=== PATIENT | male | born 1995 | race Two or more races ===

== ENCOUNTER 2017-10-12 13:59 | Emergency (ER) | payer OTHER ==
[~2017-10-12 13:59] MED LIST: AUG875 PO; CITA-137 PO; CITA-139 PO; LEVO5TAB28 PO; LOR5/325 PO; MECL25TA9 PO; ONDA4TAB PO; [UNRECOGNIZED DRUG - CODE] PO; antihistamine
[2017-10-12 14:08] VITALS: BP 142/86
--- NOTE | 2017-10-12 14:32 | ER Report ---
History and Physical Time Seen By MD: 14:27 Hx. of Stated Complaint: LSD EXPOSURE HPI/ROS CHIEF COMPLAINT: Body fluid exposure HISTORY OF PRESENT ILLNESS: Patient is a 22-year-old male who works for the [employer]. He was exposed to sweat and spit from a patient who is currently being seen in the emergency department for LSD use. The affected exposure area is his right forearm. He does not believe any bodily fluid entered into his eyes or mouth. Skin is intact over the exposed area. Allergies: Coded Allergies: No Known Drug Allergies (Unverified , 10/12/17) Home Meds Active Scripts Meclizine Hcl (MECLIZINE HCL) 25 Mg Tablet, 25 MG PO BID for dizziness, #20 TAB Prov:YODIT FABIAN MD 08/07/17 Reported Medications Levocetirizine (XYZAL) 5 Mg Tab, 10 MG PO, TAB 08/07/17 Citalopram Hydrobromide (CITALOPRAM HBR) 20 Mg Tablet, 20 MG PO 08/07/17 [antihistamine] No Conflict Check 08/07/17 Past Medical/Surgical History Anxiety Hx Smoking: No Hx Substance Use Disorder: No Constitutional Vital Sign - Last 24 Hours 10/12/17 14:08 Temp 97.3 Pulse 68 Resp 14 B/P (MAP) 142/86 Pulse Ox 94 O2 Delivery Room Air Physical Exam General appearance: Alert no distress. Respiratory: Chest is non tender, lungs are clear to auscultation. Cardiac: Regular rate and rhythm Skin: intact no rashes. Medical Decision Making Data Points Laboratory Hematology Test 10/12/17 14:22 Urine Opiates Screen Negative Urine Barbiturates Screen Negative Ur Tricyclic Antidepressants Screen Negative Urine Phencyclidine Screen Negative Urine Amphetamines Screen Negative Urine Benzodiazepines Screen Negative Urine Cocaine Screen Negative Urine Cannabinoids Screen Negative Chemistry Test 10/12/17 14:22 Urine Opiates Screen Negative Urine Barbiturates Screen Negative Ur Tricyclic Antidepressants Screen Negative Urine Phencyclidine Screen Negative Urine Amphetamines Screen Negative Urine Benzodiazepines Screen Negative Urine Cocaine Screen Negative Urine Cannabinoids Screen Negative Toxicology Test 10/12/17 14:22 Urine Opiates Screen Negative Urine Barbiturates Screen Negative Ur Tricyclic Antidepressants Screen Negative Urine Phencyclidine Screen Negative Urine Amphetamines Screen Negative Urine Benzodiazepines Screen Negative Urine Cocaine Screen Negative Urine Cannabinoids Screen Negative ED Course/Re-evaluation ED Course Plan at this time will be baseline urine drug screen. Feel that the patient has nearly negligable risk for exposure to LSD given in fact intact skin and body fluid contact was mostly limited to sweat. Decision to Disposition Date: Oct 12, 2017 Decision to Disposition Time: 14:29 Depart Departure Latest Vital Signs Vital Signs Date Time Temp Pulse Resp B/P (MAP) Pulse Ox O2 Delivery O2 Flow Rate FiO2 10/12/17 14:08 97.3 68 14 142/86 94 Room Air Impression: Primary Impression: Patient exposure to body fluids Condition: Condition Unchanged Disposition: HOME OR SELF-CARE Patient Instructions: Body Substance Exposure (ED) NADINE MCKEON MD Oct 12, 2017 14:32
== END 2017-10-12 14:42 | disposition home or self-care (01) ==
LOC: ER 14:00
DX: Z77.21 Contact with and (suspected) exposure to potentially hazardous body fluids (principal)
CPT/HCPCS: 80305; 99282

== ENCOUNTER 2017-12-05 18:47 | Emergency (ER) | payer OTHER ==
[2017-12-05] MEDS ORDERED: MULT1TAB64 PO (18:52)
--- NOTE | 2017-12-05 19:27 | ER Report ---
History and Physical Time Seen By MD: 19:19 Hx. of Stated Complaint: PT REPORTS THAT HE THINKS HE BROKE HIS RIGHT HAND KICKBOXING ABOUT 30 MINUTES AGO. HPI/ROS Patient is a 22 y.o male presenting with a right hand injury after punching an opponent at a kick boxing class. The event occurred approx. a half a hour ago. He is currently icing the hand and feels comfortable without movement. Allergies: Coded Allergies: No Known Drug Allergies (Unverified , 12/05/17) Home Meds Active Scripts Hydrocodone Bit/Acetaminophen (NORCO 5-325 TABLET) 1 Each Tablet, 1 EACH PO Q4- 6H Y for PAIN, #12 TAB Prov:LUDIN TUCKER 12/05/17 Meclizine Hcl (MECLIZINE HCL) 25 Mg Tablet, 25 MG PO BID for dizziness, #20 TAB Prov:YODIT FABIAN MD 08/07/17 Reported Medications Multivitamin (MULTI VITAMIN DAILY) 1 Each Tablet, 1 EACH PO DAILY 12/05/17 Levocetirizine (XYZAL) 5 Mg Tab, 10 MG PO, TAB 08/07/17 Citalopram Hydrobromide (CITALOPRAM HBR) 20 Mg Tablet, 20 MG PO 08/07/17 Discontinued Reported Medications [antihistamine] No Conflict Check 08/07/17 Past Medical/Surgical History No prior injury or surgery to the right hand. Hx Smoking: No Hx Substance Use Disorder: No Constitutional Vital Sign - Last 24 Hours 12/05/17 18:52 Temp 98.6 Pulse 94 Resp 14 B/P (MAP) 136/74 Pulse Ox 91 O2 Delivery Room Air Physical Exam General: Calm and under no acute distress. Resp: Clear and equal bilaterally. CV: RR, no clicks, murmurs, gallops, or rubs. MSK: Right hand with edema erythema of 5th MC. Full ROM with decreased grasping strength 3/5. Crepitus noted with palpation of 5th MC. Neuro: A&O x3, sensation intact. Psych Appropriate mood and affect. Medical Decision Making EKG/Imaging Imaging Technique: HAND COMPLETE RIGHT HISTORY: Right hand injury Comparison studies: None FINDINGS: Present is an acute, comminuted, intra-articular fracture involving the base of the right fifth metacarpal. The fracture extends into the carpometacarpal joint. There is fracture fragment diastases laterally. Remaining alignment of the right hand is maintained. Soft tissue swelling surrounds the fracture site. IMPRESSION: 1. Acute, intra-articular fracture involving the base of the right fifth metacarpal as described above. Report Dictated By: Simba Tamez DO at 12/05/2017 7:34 PM Report E-Signed By: Simba Tamez DO at 12/05/2017 7:37 PM ED Course/Re-evaluation ED Course Patient was admitted to ER with right hand injury. Ice was provided for pain. He was examined and a hand XR was taken, showing a 5th MC fx. He was splinted and given a script for Corwith. He was then discharged and will f/u with orthopedics. Procedure: Splint placement. A ulnar gutter splint was applied. After application of the splint I returned and re-examined the patient. The splint was adequately immobilizing the joint and distal to the splint the patient's circulation and sensation was intact. Decision to Disposition Date: Dec 05, 2017 Decision to Disposition Time: 20:14 Depart Departure Latest Vital Signs Vital Signs Date Time Temp Pulse Resp B/P (MAP) Pulse Ox O2 Delivery O2 Flow Rate FiO2 12/05/17 18:52 98.6 94 14 136/74 91 Room Air Impression: Primary Impression: Fracture of fifth metacarpal bone of right hand Condition: Improved Disposition: HOME OR SELF-CARE Referrals: KOREY HAM MD New Scripts Hydrocodone Bit/Acetaminophen (NORCO 5-325 TABLET) 1 Each Tablet 1 EACH PO Q4-6H Y for PAIN, #12 TAB Prov: LUDIN TUCKER 12/05/17 Patient Instructions: Hand Fracture (ED) Additional Instructions: You have a 5th metacarpal base fracture. You are placed in a ulnar gutter splint and will wear it continuously. If the wrapping feels too tight, you can loosen it but do not remove completely. A script for Corwith has been sent to your pharmacy for severe pain. Ibuprofen 800 mg every 6-8 hours as needed for pain. Ice application 20 minutes 3-4x daily. Elevations for 30 minutes 2x/daily Follow-up with orthopedics. Problem Qualifiers Primary Impression: Fracture of fifth metacarpal bone of right hand Encounter type: initial encounter Fracture type: closed Metacarpal location : base Fracture alignment: nondisplaced Qualified Codes: S62.346A - Nondisplaced fracture of base of fifth metacarpal bone, right hand, initial encounter for closed fracture LUDIN TUCKER [employer] Dec 05, 2017 19:27
--- NOTE | 2017-12-05 19:40 | RADIOLOGY IMAGING REPORT ---
FACILITY: [facility] PATIENT NAME: Colin Whyte : 1995 MR: [id number] V: [id number] EXAM DATE: ORDERING PHYSICIAN: LUDIN TUCKER TECHNOLOGIST: Location: [facility] Patient: Colin Whyte : 1995 Visit/Account:[id number] Date of Sevice: 12/05/2017 Technique: HAND COMPLETE RIGHT HISTORY: Right hand injury Comparison studies: None FINDINGS: Present is an acute, comminuted, intra-articular fracture involving the base of the right f ifth metacarpal. The fracture extends into the carpometacarpal joint. There is fracture fragment ceballos tases laterally. Remaining alignment of the right hand is maintained. Soft tissue swelling surrounds the fracture site. IMPRESSION: 1. Acute, intra-articular fracture involving the base of the right fifth metacarpal as described abo ve. Report Dictated By: Simba Tamez DO at 12/05/2017 7:34 PM Report E-Signed By: Simba Tamez DO at 12/05/2017 7:37 PM WSN:[id number]
[2017-12-05] MEDS ORDERED: HYDR-4309 PO (20:22)
[2017-12-05] MEDS ORDERED: ACET/HYDROC 5/325MG TH ER ONLY 2 TAB/BOTTLE PO ONE (20:25)
[2017-12-05 20:30] VITALS: BP 128/83
== END 2017-12-05 20:33 | disposition home or self-care (01) ==
LOC: ER 19:30
DX: S62.346A Nondisplaced fracture of base of fifth metacarpal bone, right hand, initial encounter for closed fracture (principal); W22.8XXA Striking against or struck by other objects, initial encounter; Y93.71 Activity, boxing
CPT/HCPCS: 99283

== ENCOUNTER → 2018-10-22 | Outpatient (CLI) | payer OTHER ==
[~2018-10-22] MED LIST changes: -CITA-139 PO; +CITA-145 PO; +HYDR-653 PO; +MULT1TAB64 PO
--- NOTE | 2018-10-22 15:09 | RADIOLOGY IMAGING REPORT ---
[place] [facility] [place] NAME: Colin Whyte : 1995 MR: [id number] V: [id number] EXAM DATE: ORDERING PHYSICIAN: NADINE COFFMAN TECHNOLOGIST: Location: [facility] Patient: Colin Whyte : 1995 Visit/Account:[id number] Date of Sevice: 10/22/2018 Exam type: FOOT 3 VIEWS RIGHT History: Popping sensation in throat while running yesterday, pain in right foot Comparison: None. Findings: Three views of the right foot were submitted. There is no evidence of acute fracture or dislocation. No significant arthritic changes seen. IMPRESSION: 1. No acute osteoarticular abnormality the right foot is seen. If patient's symptoms persist follow -up imaging recommended to exclude an occult injury Report Dictated By: Hilda Grider MD at 10/22/2018 3:02 PM Report E-Signed By: Hilda Grider MD at 10/22/2018 3:04 PM WSN:[id number]
== END ==
LOC: RAD 12:51
PROVIDERS: ATTEND Chiropractor
DX: M79.671 Pain in right foot (principal)